=== PATIENT | male | born 1955 | race Two or more races ===

== ENCOUNTER 2017-06-07 22:17 | Emergency (ER) | payer MEDICARE, SELFPAY ==
[2017-06-07 22:18] VITALS: BP 127/73; PULSE 86; RESP 16; TEMP 37.2; O2SAT 97; BMI 22.9
--- NOTE | 2017-06-07 22:51 | ED.DCSUM_ITS ---
- ER Visit Summary Date of Service: 06/07/17 Chief Complaint: Right shoulder injury History of Present Illness: The patient is a 61 M mechanical fall 2020 minutes prior to arrival. Walking down the steps when he tripped landing directly on his shoulder. There is no head injuries. Denies any neck or back pain. Is able to ambulate to the ED. No paresthesias. No history of fracture. Past medical history: History of [place] 2011 with one stent. Currently on cholesterol medicines. Allergy to aspirin therefore takes Plavix. Physical Examination: General: Alert and oriented ?3, no acute distress HEENT: Normocephalic, atraumatic. Moist mucosa membranes Neck: supple, nontender. No midline tenderness. Cardiovascular: Regular rate and rhythm, no murmurs Respiratory: Normal breath sounds, symmetric, no distress Back: Nontender. Abdomen: Soft, nontender, nondistended Extremities: Right upper extremity: There is no clavicular tenderness. Shoulder with tenderness to palpation proximal shoulder. No deformities. Active range of motion. No elbow tenderness. Skin intact. Neurovascular intact distally. Neuro: no focal neurological deficits. Test Results: Right shoulder x-ray: No fracture or dislocation Emergency Department Course and Treatment: Patient concerned requested pain medicines. Given oxycodone. X-ray negative. Discuss due to inability tolerate NSAIDs he will use Tylenol every 6 hours as needed. I discussed continue range of motion to decrease risk of frozen shoulder. Rice therapy. Ice was given ED. Treatment Plan: [] Disposition: Discharge Impression: Right shoulder contusion This note was generated with [employer] dictation software. It may contain incorrect words, spelling, and punctuation that were not noted in review of the chart prior to signing ED Disposition - Plan for ED Patient: Disposition: Home or Assisted Living Chief Complaint: Upper Extremity Injury Diagnosis: Contusion of right shoulder Instructions: ED Contusion Shoulder Referrals: Willow Voss PA [Primary Care Provider] - 5-7 Days
[2017-06-07] MEDS: oxyCODONE 5 MG Tablet PO (22:53)
--- NOTE | 2017-06-07 22:55 | RAD_ITS ---
XR Shoulder Min 2 Views INDICATION: pain and limited rom s/p fall down stairs tonight COMPARISON: None TECHNIQUE: 4 views of the right shoulder FINDINGS: The osseous structures of the right shoulder are intact and well aligned. There is normal glenohumeral relationship is normal alignment at the acromioclavicular joint. The right clavicle appears intact. RAD/Shoulder min 2 Views IMPRESSION: Negative plain film examination of the right shoulder. at 2349 Reported and signed by: Shea Ortiz MD Electronically Signed: Shea Ortiz MD at 22:48 EDT Tel , Service support ,
== END 2017-06-08 00:03 | disposition home or self-care (01) ==
PROVIDERS: Emergency Provider Emergency Medicine; Family Provider Physician Assistant; PCP Physician Assistant
DX: S40.011A Contusion of right shoulder, initial encounter (principal); W10.9XXA Fall (on) (from) unspecified stairs and steps, initial encounter; Y93.01 Activity, walking, marching and hiking; Y92.9 Unspecified place or not applicable; I25.2 Old myocardial infarction; I10 Essential (primary) hypertension; E78.00 Pure hypercholesterolemia, unspecified; Z95.5 Presence of coronary angioplasty implant and graft; Z79.01 Long term (current) use of anticoagulants; Z79.899 Other long term (current) drug therapy
CPT/HCPCS: 73030; 99282

== ENCOUNTER → 2018-09-18 | Outpatient (CLI) | payer MEDICARE, SELFPAY ==
[2018-09-09 14:15] VITALS: BMI 22.4
--- NOTE | 2018-09-18 06:52 | ECHOCS_ITS ---
Version 2 Reason For Study: CAD/ASHD Procedure This was a 2D Doppler, Color Flow transthoracic echocardiogram. Contrast injection was performed. Exam performed in department. Left Ventricle Normal LV size. No thrombus noted. Moderate segmental systolic dysfunction (see wall motion). The estimated ejection fraction is 40 %. Mid-Anterior : Akinetic. Mid-anteroseptal : Severely Hypokinetic. Camby : Akinetic. There are regional wall motion abnormalities as specified. The rest of the wall segments are normal. Right Ventricle Normal RV size. Normal systolic function. Atria Normal left atrium. Normal right atrium. Patent foramen ovale. Mitral Valve Normal mitral valve. Mild (1+) eccentric mitral valve insufficiency. Tricuspid Valve Normal tricuspid valve. Aortic Valve Normal aortic valve. Trisinus/trileaflet aortic valve. Mild (1+) eccentric aortic valve insufficiency. Pulmonic Valve Normal pulmonic valve. Great Vessels Normal aortic root. The pulmonary artery is normal size. Normal inferior vena cava. Pericardium/Pleural No pericardial effusion. Medication Diluted definity 4ml given slow IV push to enhance endocardial definition. Performed a rapid injection of agitated mix of 9 cc saline and 1cc air to assess for atrial septal defect. MMode/2D Measurements & Calculations LVIDd: 5.1 cm IVSd: 1.3 cm Ao root diam: 2.9 cm LVIDs: 3.9 cm LVPWd: 0.97 cm RVDd: 3.3 cm FS: 23.1 % LAV(MOD-bp): 41.9 ml LVAd ap4: 40.4 cm2 SV(MOD-sp4): 62.1 ml LAV(MOD-bp) Indexed: 22.4 ml/m2 EDV(MOD-sp4): 157.7 ml LAV(MOD-sp2): 46.1 ml EDV(sp4-el): 165.9 ml LAV(MOD-sp4): 36.7 ml LVAs ap4: 30.1 cm2 ESV(MOD-sp4): 95.6 ml ESV(sp4-el): 101.9 ml EF(MOD-sp4): 39.4 % EF(sp4-el): 38.6 % SV(sp4-el): 64.1 ml LA A4 area: 13.8 cm2 LA dimension(2D): 3.7 cm RA A4 area: 11.4 cm2 Doppler Measurements & Calculations MV E max enoc: 60.3 cm/sec Lat Peak E' Enoc: 3.2 cm/sec Med Peak E' Enoc: 4.5 cm/sec MV A max enoc: 96.3 cm/sec E/E' lat: 18.7 E/E' med: 13.5 MV E/A: 0.63 Ao V2 max: 97.7 cm/sec LV V1 max: 75.2 cm/sec PA V2 max: 94.4 cm/sec Ao max P.8 mmHg LV V1 max P.3 mmHg Ao V2 mean: 75.0 cm/sec Ao mean P.4 mmHg Ao V2 VTI: 20.1 cm Interpretation Summary Normal LV size. Moderate segmental systolic dysfunction (see wall motion). The estimated ejection fraction is 40 %. Mild (1+) eccentric mitral valve insufficiency. No thrombus noted. Ordering Physician: Tian Coronado Referring Physician: Raghu Voss Performed By: Perlita Angel, MARIA ISABEL, RVT
--- NOTE | 2018-09-18 14:57 | STRESSREP ---
Stress Test Report Exercise myocardial perfusion stress test. 62-year-old man with a history of coronary artery disease. Medications Coumadin, losartan, amitriptyline. Stress protocol: Resting EKG demonstrates normal sinus rhythm with rate of 68 bpm. Previous extensive anterior infarct is noted. Resting blood pressures 124/80 mmHg. The patient exercised according to regular Alberto protocol for a total duration of 10 minutes. The maximum heart rate attained was 133 bpm which was 84% of maximum corrected heart rate and maximum workload was 11.7 metabolic equivalents. The patient maintained sinus rhythm throughout the recording. At rest there were no ST or T wave changes noted to suggest ischemia peak exercise upsloping ST changes only were noted with no meet the criteria for ischemia. The resting blood pressure was 124/80 with a peak blood pressure 150/82 mmHg. No clinical angina was noted the test was terminated due to shortness of breath. Myocardial perfusion protocol. 11.1 mCi of technetium 99m sestamibi was injected at rest. Patient exercised according to regular Alberto protocol for 10 minutes at peak exercise 33.2 mCi of technetium 99m sestamibi was injected stress images were obtained stress and rest images are reconstructed and compared in the short axis vertical and horizontal long axis. Gated images were also obtained Perfusion SPECT analysis: Review of the images demonstrate a normal cardiac silhouette size. There is an extensive defect noted in the mid to distal anterior wall apex and inferior apical wall. This is present on the stress and rest images to a similar extent suggesting an extensive anteroseptal apical distal anterior and inferior apical infarct. The inferior wall also demonstrates in the mid segment mild reduction of perfusion noted. No improvement is noted. Gated SPECT analysis: Gated images could not be obtained. Conclusion: Extensive anteroseptal, anterior, apical and inferoapical infarct. No ischemia noted.
== END | disposition home or self-care (01) ==
LOC: CVS 06:50
PROVIDERS: Family Provider Physician Assistant; PCP Physician Assistant; Referring Provider Internal Medicine Cardiovascular Disease; Visit Provider Internal Medicine Cardiovascular Disease
DX: Z01.810 Encounter for preprocedural cardiovascular examination (principal); I25.10 Atherosclerotic heart disease of native coronary artery without angina pectoris; Z95.5 Presence of coronary angioplasty implant and graft
CPT/HCPCS: 78452; 93017; 93306; A9500; Q9957; A4216; C8929

== ENCOUNTER → 2019-12-10 09:30 | Outpatient (CLI) | payer MEDICARE, SELFPAY ==
[2019-09-09 13:57] VITALS: BMI 22.2
== END ==
PROVIDERS: PCP Physician Assistant; Referring Provider Nurse Practitioner Family; Visit Provider Nurse Practitioner Family
DX: Z03.818 Encounter for observation for suspected exposure to other biological agents ruled out (principal); J02.9 Acute pharyngitis, unspecified
CPT/HCPCS: 87635; C9803; U0003

== ENCOUNTER → 2020-05-30 10:46 | Outpatient (CLI) | payer MEDICARE, SELFPAY ==
[2020-05-30 09:15] VITALS: BMI 22.9
[2020-05-30 11:44] LABS: AST(SGOT) 28 U/L (15-37); Alanine Aminotransfer ALT/SGPT 36 U/L (16-61); Albumin, Serum 4.2 g/dL (3.2-5.0); Alkaline Phosphatase 49 U/L (45-117); Bilirubin, Direct 0.11 mg/dL (0.00-0.30); Cholesterol 176 mg/dL (200); Globulin 3.6 g/dL (2.2-4.2); High Density Lipoprotein 52 mg/dL; Protein, Total 7.8 g/dL (6.4-8.2); Triglycerides 275 mg/dL; Very Low Density Lipoprotein 55 mg/dL (5-40)
== END ==
PROVIDERS: PCP Physician Assistant; Referring Provider Internal Medicine Cardiovascular Disease; Visit Provider Internal Medicine Cardiovascular Disease
DX: I25.10 Atherosclerotic heart disease of native coronary artery without angina pectoris (principal)
CPT/HCPCS: 36415; 80061; 80076

== ENCOUNTER 2022-12-16 07:13 | Day surgery (SDC) | payer MEDICARE, SELFPAY ==
[2022-12-16] VITALS (8 sets, daily range): BP systolic 91–122; BP diastolic 61–72; PULSE 75–80; RESP 16–18; TEMP 36.1–37.3; O2SAT 96–100; BMI 18.9
--- NOTE | 2022-12-16 | LES_PTH ---
PATIENT: NATE MILTON LOC: [facility] U#:[id number] AGE/SX: 67/M ROOM: RE12/16/[address]: Dr. Andrew Nair MD : 1955 BED: DIS: 12/16/2022 SPEC #: [id number] RECD: 12/16/22 10:47 STATUS: CHRIS RAMBO #: [id number] RIRI: 12/16/22 00:[address]: Andrew Nair DEPT: SURGICAL PATHOLOGY RECD BY: Ender Sarah ENTERED: 12/16/22 11:18 SP TYPE: Lesion OTHR DR: MONIE Santoro Tissues: Skin of lip, NOS Procedures: Surgery Specimen Level IV HEADER OPERATION: Excision oral lesion, lower lip PRE-OP DIAGNOSIS: Lesion of oral mucosa TISSUE SUBMITTED: Gingival labial sulcus neoplasm MICROSCOPIC DIAGNOSIS Gingival labial sulcus lesion, excisional biopsy: Subepithelial fibrosis, favor irritation fibroma. Focal ulceration and acute and chronic inflammation. Acanthosis and pseudoepitheliomatous hyperplasia. Negative for malignancy. See comment. MADY:manuela 12/17/2022 COMMENT Clinical correlation and appropriate follow up are necessary. Case has been reviewed in consultation with Dr. Cuellar who concurs with the above diagnosis. IDC:AM MICROSCOPIC DESCRIPTION Slides are reviewed. GROSS DESCRIPTION Received in fixative is one container labeled with the patient's name and designated gingival labial sulcus neoplasm. The specimen consists of a piece of leonard mucosal tissue measuring 3.2 x 1.2 x 0.4 cm. No obvious mucosal lesion is identified. The specimen is serially sectioned and submitted entirely in two cassettes. / MADY:manuela 12/16/2022 TC:5 CPT: 34037
[2022-12-16] MEDS: Lactated Ringers 1,000 ML 15 ML IV (07:51)
[2022-12-16 08:10] LABS: Hemoglobin 12.8 g/dL (13.0-16.5); Mean Corp Hgb Conc 32.8 g/dL (32-36); Mean Corpuscular Hgb 29.8 pg (27.0-32.0); Mean Corpuscular Volume 90.7 fL (80-94); Mean Platelet Vol. 10.2 fl (6.2-12.0); Platelet Count 187 K/mm3 (150-450); RBC Distribution Width CV 12.5 % (11.6-14.6); RBC Distribution Width SD 41.3 fl (35.1-43.9); White Blood Count 4.6 K/mm3 (4.4-11.0)
[2022-12-16 08:18] LABS: Anion Gap 4 (5-15); BUN 14 mg/dL (7-18); BUN/Creat Ratio 16.6 RATIO (10-20); Chloride 106 mmol/L (98-107); Creatinine, Serum 0.84 mg/dL (0.70-1.30); EST Glomerular Filtration Rate 97 mL/min (>60); Est Glom Filt Rate - Afr Amer 117 mL/min (>60); Estimated Creatinine Clearance 72.42 ml/min; Glucose 96 mg/dL (74-106); Potassium 4.2 mmol/L (3.5-5.1); Sodium Level 139 mmol/L (136-145)
[2022-12-16] MEDS: Clindamycin 900 MG/50 ML BAG 75 MG IV (08:50)
--- NOTE | 2022-12-16 08:50 | PCM.DC.SUM ---
Providers Primary Care Physician: MONIE Santoro Reason For Visit: Excision, Oral Lesion, lower lip Medications at Discharge Home Medications amitriptyline 25 mg tablet 25 mg PO QHS 05/30/20 rosuvastatin 10 mg tablet 10 mg PO QHS 08/16/22 Weight / BMI Weight Weight: 60 kg Body Mass Index (BMI) 18.9 ABG / Lab / Microbiology Data 12/16/22 07:54 12/16/22 07:54 Laboratory: Laboratory Results - last 24 hr 12/16/22 07:54: WBC 4.6, RBC 4.30 L, Hgb 12.8 L, Hct 39.0 L, MCV 90.7, MCH 29.8, MCHC 32.8, RDW Std Deviation 41.3, RDW Coeff of Toshia 12.5, Plt Count 187, MPV 10.2, Sodium 139, Potassium 4.2, Chloride 106, Carbon Dioxide 29.0, Anion Gap 4 L, BUN 14, Creatinine 0.84, Estim Creat Clear Calc 72.42, Est GFR (MDRD) Af Amer 117, Est GFR (MDRD) Non-Af 97, BUN/Creatinine Ratio 16.6, Glucose 96, Calcium 9.0 D/C Instructions Discharge Diet: Soft diet Additional Instructions: tylenol as needed. Start the antibiotic tonight Please Follow Up With: Andrew Nair MD When: 10-14 days Meaningful Use Info Meaningful Use Diagnoses (Choose all that apply): None applicable Discharge Plan Admission Attending Provider: Andrew Nair Primary Care Provider: Willow Voss Discharge Orders/Prescriptions Prescriptions: No Action amitriptyline 25 mg tablet 25 mg PO QHS rosuvastatin 10 mg tablet 10 mg PO QHS Referrals / Follow Up: Willow Voss PA [Primary Care Provider] - Disposition Disposition (needs filled in before D/C Order can be placed): Home, Self Care
[2022-12-16] MEDS: Lidocaine 2% /Epi 1:100 (20ml) 20 ML VIAL (09:03)
--- NOTE | 2022-12-16 09:31 | PCM.OPRPT ---
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 He was placed in the supine position on the operating table. He was given sufficient general endotracheal anesthesia. The head of bed was elevated 30 degrees. The patient was draped sterilely. 1% lidocaine with epinephrine was injected into the mucosa surrounding the lesion. After sufficient vasoconstriction, an ellipitical incision was carried out around the lesion with a 15 blade. Bipolar cautery was used for hemostasis. Next, I used tenotomy scissors to dissect the mucosa off the underlying muscle. Hemostasis was achieved with bipolar cautery. I then irrigated the wound. The mucosa was closed with interrupted 4-0 chromic. The patient was then awoken and brought to recovery room in stable condition. blood loss minimal replacement none. sponge, needle and instrument count correct at the end of the procedure. ?
--- NOTE | 2022-12-16 10:47 | EKG12_ITS ---
Test Reason : PRE-OP Blood Pressure : / mmHG Vent. Rate : 076 BPM Atrial Rate : 076 BPM P-R Int : 192 ms QRS Dur : 094 ms QT Int : 386 ms P-R-T Axes : 046 -05 124 degrees QTc Int : 434 ms Normal sinus rhythm Low voltage QRS T wave abnormality, consider lateral ischemia Abnormal ECG Confirmed by SIVA ELLIS, ZUNILDA ([id number]), assistant editor FRANCISCO RAND ([id number]) on 12/26/2022 11:37:28 AM Referred By: Andrew Nair Confirmed By:ZUNILDA PANIAGUA MD
== END 2022-12-16 12:17 | disposition home or self-care (01) ==
LOC: SDC 07:14 → AC 07:16
PROVIDERS: PCP Physician Assistant; Referring Provider Otolaryngology; Visit Provider Otolaryngology
PROC: (CPT 40814; principal; 2022-12-16 08:15)
DX: D10.39 Benign neoplasm of other parts of mouth (principal); I25.2 Old myocardial infarction; I25.5 Ischemic cardiomyopathy; E78.5 Hyperlipidemia, unspecified; I25.10 Atherosclerotic heart disease of native coronary artery without angina pectoris; Z95.5 Presence of coronary angioplasty implant and graft; Z79.899 Other long term (current) drug therapy
CPT/HCPCS: 40814; 00170; 80048; 85027; 88305; 93005; J7120; J2405

== ENCOUNTER 2023-04-09 21:55 | Emergency (ER) | payer MEDICARE, SELFPAY ==
[2023-04-09] VITALS (12 sets, daily range): BP systolic 119–151; BP diastolic 62–85; PULSE 76–91; RESP 14–17; TEMP 36.7–36.9; O2SAT 95–99; BMI 18.2; BMI 19.3
--- NOTE | 2023-04-09 21:57 | CT_ITS ---
We are attempting to reach an attending provider to discuss findings. An addendum with communication details will be sent when the communication is complete. INDICATION: Neuro deficit, acute, stroke suspected EXAMINATION: CT BRAIN - CT Head Stroke Protocol W/O Contrast Injection TECHNIQUE: Multiple axial images were obtained of the head without intravenous contrast. A radiation dose optimization technique was used for this scan. IV Contrast dosage and agent: None. COMPARISON: None FINDINGS: BRAIN PARENCHYMA: No intra- or extra-axial hemorrhage. No evidence of acute infarct. No intracranial mass or mass effect. Mild patchy periventricular and subcortical white matter hypodense chronic small vessel white matter ischemic change. There is preservation of the liu/white matter interface. Posterior fossa structures are unremarkable. CSF SPACES: Cerebral volume appropriate for age. No hydrocephalus. Basal cisterns are patent. CALVARIUM, SKULL BASE, PARANASAL SINUSES AND MASTOID AIR CELLS: No acute osseous finding. Mild scattered paransal sinus mucoperisteal thickening. Left congenital osseous nasal septal deviation with left greater than right ekta bullosa. Mastoid air cells are clear. ORBITS: Both globes, extraocular muscles, optic nerves and retrobulbar fat appear unremarkable. ASPECTS Score for Acute Strokes: 10 CT/STROKE Brain/Head without Cont IMPRESSION: No CT evidence of acute intracranial hemorrhage or injury. Mild senescent changes compatible with age. Mild scattered sinus disease. Electronically Signed: Justen Soto MD at 22:15 EST ,
--- NOTE | 2023-04-09 21:59 | CT_ITS ---
INDICATION: Neuro deficit, acute, stroke suspected EXAMINATION: CTA CAROTIDS AND BRAIN - CTA Head and Neck Stroke W/ Contrast (and W/O if performed) TECHNIQUE: Routine CTA of the head and neck was performed with post processing of the angiographic images for volumetric reconstructions. In addition, images were obtained of the [place] of [place]. Nascet criteria using the distal ICAs for comparison were used for evaluation of stenoses. 3D reconstructions were reviewed. A radiation dose optimization technique was used for this scan. IV Contrast dosage and agent: 100 mL [id number] COMPARISON: Noncontrast CT head on same day. FINDINGS: --NECK: AORTIC ARCH AND BRANCHES: Normal anatomy, patent. RIGHT CCA: No occlusion, significant stenosis or dissection. RIGHT ICA: No occlusion, significant stenosis or dissection. LEFT CCA: No occlusion, significant stenosis or dissection. LEFT ICA: No occlusion, significant stenosis or dissection. RIGHT VERTEBRAL ARTERY: No occlusion, significant stenosis or dissection. LEFT VERTEBRAL ARTERY: No occlusion, significant stenosis or dissection. NECK SOFT TISSUES: Unremarkable. LUNG APICES: Clear. BONES: Scattered mild paranasal sinus mucoperiosteal thickening.. --HEAD: --Anterior circulation: ICAs: No significant stenosis at the intracranial/visualized segments. ACAs: No significant stenosis at the visualized segments. ACOM: Present. MCAs: Right distal M1 segment focal greater than 90% stenosis across 3 mm span just prior to bifurcation of the superior and inferior divisions. No focal flow-limiting stenosis on the left proximal MCA.. --Posterior circulation: PCOMs: Not seen senior electrical design engineer: No significant stenosis at the visualized segments. BASILAR ARTERY: No significant stenosis. VERTEBRAL ARTERIES: No significant stenosis at the intradural/visualized segments. No evidence of intracranial aneurysm or vascular malformation. CT/STROKE CTA Head AND Neck W/Con IMPRESSION: Findings concerning for focal short segment high-grade stenosis of the distal right M1 segment just prior to bifurcation at the sylvian fissure with reconstitution and distal vascular flow. No evidence of flow-limiting stenosis within the neck. Sinus disease N.B. : The above Results were Read Back by Justen Soto MD to Ayan Weinstein DO, and understanding confirmed on 04/09/2023 22:48:28 (ET). Electronically Signed: Justen Soto MD at 22:50 EST ,
[2023-04-09 22:16] LABS: International Normalized Ratio 1.2
[2023-04-09 22:17] LABS: Partial Thromboplast Time 30.9 Seconds (24.1-36.2)
[2023-04-09 22:18] LABS: Absolute Lymphocyte Count 2.79 X10^3/uL (0.83-4.51); Basophil# 0.07 X10^3/uL; Eosinophil# 0.27 X10^3/uL; Hemoglobin 12.9 g/dL (13.0-16.5); Lymphocyte # 2.79 X10^3/ul (0.83-4.51); Mean Corp Hgb Conc 33.9 g/dL (32-36); Mean Corpuscular Hgb 29.2 pg (27.0-32.0); Mean Platelet Vol. 10.5 fl (6.2-12.0); Monocyte# 0.71 X10^3/uL; Monocyte% 10.4 % (0-10); NRBC Flagged by Analyzer 0 % (0-5); Neutrophil # 2.96 X10^3/uL (2.7-7.7); Neutrophil % 43.6 % (47-70); Platelet Count 209 K/mm3 (150-450); RBC Distribution Width CV 12.8 % (11.6-14.6); Red Blood Count 4.42 M/mm3 (4.6-6.2); White Blood Count 6.8 K/mm3 (4.4-11.0)
[2023-04-09 22:20] LABS: Anion Gap 4 (5-15); BUN 19 mg/dL (7-18); BUN/Creat Ratio 19.5 RATIO (10-20); Calcium,Total 9.5 mg/dL (8.5-10.1); Chloride 106 mmol/L (98-107); Creatinine, Serum 0.98 mg/dL (0.70-1.30); EST Glomerular Filtration Rate 82 mL/min (>60); Est Glom Filt Rate - Afr Amer 99 mL/min (>60); Estimated Creatinine Clearance 63.21 ml/min; Glucose 101 mg/dL (74-106); Sodium Level 138 mmol/L (136-145)
--- OUTSIDE RECORDS SUMMARY | 2023-04-09 22:21 | XMS RPT_ITS | CCD ---
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 patient. No educational speech language clinician was used. URI He complains of cough. There is no chest tightness, difficulty breathing, frequent throat clearing, hemoptysis, hoarse voice, shortness of breath, sputum production or wheezing. This is a new problem. The current episode started in the past 7 days. The problem occurs constantly. The problem has been gradually worsening. The cough is non-productive. Associated symptoms include ear congestion, ear pain, a fever, headaches, malaise/fatigue, nasal congestion, postnasal drip, rhinorrhea and sneezing. Pertinent negatives include no appetite change, chest pain, dyspnea on exertion, heartburn, myalgias, orthopnea, PND, sore throat, sweats, trouble swallowing or weight loss. His symptoms are aggravated by nothing. His symptoms are alleviated by nothing. He reports no improvement on treatment. There are no known risk factors for lung disease. There is no history of asthma, bronchiectasis, bronchitis, COPD, emphysema or pneumonia. PAST MEDICAL HISTORY Diagnosis Date Abdominal pain, unspecified site Anxiety with depression Chronic insomnia Coronary artery disease s/p thrombectomy and SAI mid-LAD with promus stent 12/2011 Coronary artery disease involving beaver coronary artery of beaver heart without angina pectoris Impotence of organic origin Mixed hyperlipidemia Hyperlipidemia Mural thrombus of cardiac apex 09/18/2018 09/18/[address] Coronado: Left ventricle normal size, no thrombus noted. Moderate segmental systolic dysfunction. It ejection fraction estimated 40%. Mid anterior akinesis, mid anteroseptal severely hypokinetic. Hammond is akinetic. Right ventricle normal size and systolic function. Left and right atrium are normal. Patent foramen ovale present. Valves are within normal limits except Myalgia and myositis, unspecified Myocardial infarction (HCC) 2012 Nonischemic cardiomyopathy (HCC) Rotator cuff tear, right PAST SURGICAL HISTORY Procedure Laterality Date COLONOSCOPY FLX DX W/COLLJ SPEC WHEN PFRMD 03/15/15 Colonoscopy COLONOSCOPY FLX DX W/COLLJ SPEC WHEN PFRMD 04/06/2019 Colonoscopy PAST SURGICAL HISTORY OF Right inguinal hernia repair PAST SURGICAL HISTORY OF Heart cath with stents x 2, [place] [facility] ALLERGIES Aspirin and Naprosyn [Naproxen] MEDICATIONS amitriptyline (ELAVIL) 25 mg tablet Take 1 tablet by mouth daily at bedtime. mirtazapine (REMERON) 15 mg tablet Take 0.5 tablets by mouth daily at bedtime. melatonin 1 mg tablet Take 1 tablet by mouth once daily. rosuvastatin (CRESTOR) 10 mg tablet Take 1 tablet by mouth daily at bedtime. nitroglycerin sublingual (NITROSTAT) 0.4 mg SL tablet Dissolve 1 tablet under the tongue every 5 minutes as needed for chest pain. aspirin, enteric coated (ASPIRIN, ENTERIC COATED) 81 mg EC tablet Take 81 mg by mouth once daily. Pt only takes a few times a week. amoxicillin-clavulanic acid (AUGMENTIN) 875-125 mg per tablet Take 1 tablet by mouth twice daily for 7 days. FAMILY HISTORY Problem Relation Age of Onset None Mother None Father natural causes per pt No Ocular Disease Other Social History Tobacco Use Smoking status: Never Smokeless tobacco: Never Vaping Use Vaping Use: Never used Substance Use Topics Alcohol use: No Drug use: No Review of Systems Constitutional: Positive for chills, fever and malaise/fatigue. Negative for appetite change and weight loss. HENT: Positive for congestion, ear pain, postnasal drip, rhinorrhea and sneezing. Negative for hoarse voice, sore throat and trouble swallowing. Eyes: Negative for pain, discharge, redness and itching. Respiratory: Positive for cough. Negative for apnea, hemoptysis, sputum production, chest tightness, shortness of breath and wheezing. Cardiovascular: Negative for chest pain, dyspnea on exertion and PND. Gastrointestinal: Negative for abdominal pain, diarrhea, heartburn, nausea and vomiting. Musculoskeletal: Negative for arthralgias, back pain, gait problem and myalgias. Skin: Negative for color change, pallor and rash. Allergic/Immunologic: Negative for environmental allergies, food allergies and immunocompromised state. Neurological: Positive for headaches. Negative for dizziness and facial asymmetry. Hematological: Negative for adenopathy. Does not bruise/bleed easily. Psychiatric/Behavioral: Negative for agitation and behavioral problems. Objective BP 110/62 Pulse 91 Temp 37.1 C (98.7 F) (Tympanic) Resp 18 Wt 62 kg (136 lb 9.6 oz) SpO2 96% BMI 19.60 kg/m Physical Exam Vitals and nursing note reviewed. Constitutional: General: He is not in acute distress. Appearance: Normal appearance. He is not ill-appearing, toxic-appearing or diaphoretic. HENT: Head: Normocephalic and atraumatic. Right Ear: External ear normal. Left Ear: External ear normal. Ears: Comments: Left TM erythematous and blging Nose: Nose normal. No congestion or rhinorrhea. Mouth/Throat: Mouth: Mucous membranes are moist. Pharynx: Oropharynx is clear. No oropharyngeal exudate or posterior oropharyngeal erythema. Eyes: General: Right eye: No discharge. Left eye: No discharge. Extraocular Movements: Extraocular movements intact. Conjunctiva/sclera: Conjunctivae normal. Pupils: Pupils are equal, round, and reactive to light. Cardiovascular: Rate and Rhythm: Regular rhythm. Pulses: Normal pulses. Heart sounds: Normal heart sounds. No murmur heard. No friction rub. No gallop. Pulmonary: Effort: Pulmonary effort is normal. No respiratory distress. Breath sounds: Normal breath sounds. No stridor. No wheezing, rhonchi or rales. Chest: Chest wall: No tenderness. Abdominal: General: Abdomen is flat. There is no distension. Palpations: Abdomen is soft. There is no mass. Tenderness: There is no abdominal tenderness. There is no guarding or rebound. Hernia: No hernia is present. Musculoskeletal: General: No swelling, tenderness, deformity or signs of injury. Normal range of motion. Cervical back: Normal range of motion and neck supple. No rigidity or tenderness. Right lower leg: No edema. Left lower leg: No edema. Lymphadenopathy: Cervical: No cervical adenopathy. Skin: General: Skin is warm and dry. Capillary Refill: Capillary refill takes less than 2 seconds. Coloration: Skin is not jaundiced or pale. Findings: No bruising, lesion or rash. Neurological: General: No focal deficit present. Mental Status: He is alert and oriented to person, place, and time. Cranial Nerves: No cranial nerve deficit. Sensory: No sensory deficit. Motor: No weakness. Coordination: Coordination normal. Gait: Gait normal. Deep Tendon Reflexes: Reflexes normal. Psychiatric: Mood and Affect: Mood normal. Behavior: Behavior normal. Thought Content: Thought content normal. Assessment and Plan ASSESSMENT/PLAN: 1. URI, acute - ICD9: 465.9, ICD10: J06.9 (primary diagnosis) - Symptomatic treatment with prn analgesia - Supportive care with fluids and rest - The patient may also use OTC cough and cold meds as needed, warm salt water gargles, throat lozenges and/or OTC throat spray as needed, and nasal saline gtts and suction prn. - Follow up in 3-5 days if symptoms persist or sooner if worsening of symptoms 2. Acute otitis media, left - ICD9: 382.9, ICD10: H66.92 - Will begin treatment with as per antibiotic as written, see orders - The patient should also be given OTC cough and cold meds as needed, warm salt water gargles, throat lozenges and/or OTC throat spray as needed, and nasal saline gtts and suction prn for the first 5-7 days of treatment. - Supportive care with plenty of fluids, rest, and analgesia prn. - Follow up in 3-5 days if symptoms persist or worsen. Jewell Hung APRN.CUSTOMER SERVICE RECEPTIONIST documented in this encounter [facility] 10-30-2022 Miscellaneous Notes Patient has been identified by name and date of : Yes Last office visit in this department: 09/02/2022 Labs-06/28/22 NOV-none RX INSTRUCTIONS: Patient aware RX will be sent to pharmacy. No need to notify patient. Patient phones requesting refills as follows: Requested Prescriptions Pending Prescriptions Disp Refills amitriptyline (ELAVIL) 25 mg tablet 180 tablet 0 Sig: Take 1 tablet by mouth daily at bedtime. Please review and advise. Ramona Guillaume Pss documented in this encounter [facility] 09-02-2022 Note HNO ID: [id number] Author: Willow Voss PA-C Service: ? Author Type: Physician Safety Coordinator Type: Progress Notes Filed: 09/02/2022 5:08 PM Note Text: 66 year old male with c/o C/o shoulder and leg pain Worried about being too thin. Appetite is not good: feels it is lower than previous. People at [employer] ask what's wrong with him. Weight has been stable over last year No change in bowels. Feels weak, cold. 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 Colonoscopy 04/06/2019 WNL Constipation: takes metamucil Concerned about calluses on toes. Wears slippers. At home. Coronary artery disease involving beaver coronary artery of beaver heart without angina pectoris (primary encounter diagnosis) Nonischemic cardiomyopathy (hcc) Myocardial infarction, unspecified mi type, unspecified artery (hcc) Mixed hyperlipidemia Cardiovascular interval hx: Saw Dr. Coronado In July: doing well Current meds: Rosuvastin 10mg qHS (changed from atrovastatin at daughter's request) NTG 0.4mg SL prn Use of NTG: No Chest pain, arm, jaw pain, neck, or upper back pain suggestive of angina: No. SOB: No Dyspnea with exertion: No orthopnea: No Cough : No racing or irregular heartbeats: No palpitations: No syncopal sx: No Headache: No Unexplainable fatigue No Leg swelling: No Nausea: No diaphoresis: Yes Heartburn: No Claudication: No Smoking: No Following Low cholesterol, high fiber diet? Yes If on statin: muscle aches? no If on statin: GI sx or diarrhea? No Additional history none. Lab review: Component Latest Ref Rng AND Units 09/02/2018 03/31/2019 04/24/2022 WBC 3.70 - 11.00 k/uL 6.78 4.57 RBC 4.20 - 6.00 m/uL 4.60 4.74 Hemoglobin 13.0 - 17.0 g/dL 13.8 14.5 Hematocrit 39.0 - 51.0 % 40.4 43.4 MCV 80.0 - 100.0 fL 87.8 91.6 MCH 26.0 - 34.0 pg 30.0 30.6 MCHC 30.5 - 36.0 g/dL 34.2 33.4 RDW-CV 11.5 - 15.0 % 13.2 12.7 Platelet Count 150 - 400 k/uL 201 202 MPV 9.0 - 12.7 fL 10.9 11.0 Neut% % 57.7 54.8 Abs Neut (ANC) 1.45 - 7.50 k/uL 3.91 2.51 Lymph% % 27.0 32.2 Abs Lymph 1.00 - 4.00 k/uL 1.83 1.47 Smyth% % 11.1 8.8 Abs Smyth <0.87 k/uL 0.75 0.40 Eosin% % 3.2 3.3 Abs Eosin <0.46 k/uL 0.22 0.15 Baso% % 1.0 0.9 Abs Baso <0.11 k/uL 0.07 0.04 Immature Gran % % 0.0 IMMATURE GRANS (ABS) <0.10 k/uL <0.03 NRBC /100 WBC 0.0 Absolute nRBC <0.01 k/uL <0.01 <0.01 DTYPE Auto Nucleated Reds 0 /100 WBC 0.0 Diff Type Auto Diff Protein, Total 6.3 - 8.0 g/dL 7.7 7.6 Albumin 3.9 - 4.9 g/dL 4.8 4.6 Calcium 8.5 - 10.2 mg/dL 9.9 10.0 Bilirubin, Total 0.2 - 1.3 mg/dL 0.4 0.4 Alkaline Phosphatase 38 - 113 U/L 46 50 AST 14 - 40 U/L 28 24 Glucose 74 - 99 mg/dL 108 (H) 98 BUN 9 - 24 mg/dL 11 10 Creatinine 0.73 - 1.22 mg/dL 0.80 0.80 Sodium 136 - 144 mmol/L 138 141 Potassium 3.7 - 5.1 mmol/L 4.5 4.4 Chloride 97 - 105 mmol/L 101 104 CO2 22 - 30 mmol/L 27 28 Anion Gap 9 - 18 mmol/L 10 9 ALT 10 - 54 U/L 28 20 eGFR- >60 eGFR-All Other Races . >60 eGFR >=60 mL/min/1.73mA? 98 Cholesterol, Total <200 mg/dL 200 (H) 156 Triglyceride <150 mg/dL 144 146 HDL Cholesterol >39 mg/dL 49 49 LDL Cholesterol <100 mg/dL 122 (H) 78 Non HDL Cholesterol <130 mg/dL 151 (H) 107 Fasting Time hrs Unknown 11 VLDL Cholesterol <30 mg/dL 29 29 TC:HDL Ratio <5.10 4.08 3.18 LDL:HDL Ratio <2.54 2.49 1.59 Anxiety with depression Current medications: Melatonin 1mg HS Elavil 25mg 2 tabs at bedtime Lesion of buccal mucosa Bph with obstruction/lower urinary tract symptoms Elevated psa Had scheduled consult Danae Edward PA-C on his own but had not completed PSA Post void residual 0mL PSA (ng/mL) Date Value 06/28/2022 0.71 PSA Screening (ng/mL) Date Value 01/07/2015 0.97 02/19/2014 2.90 02/10/2013 1.40 HISTORIES FAMILY HISTORY Problem Relation Age of Onset None Mother None Father natural causes per pt No Ocular Disease Other PAST MEDICAL HISTORY Diagnosis Date Abdominal pain, unspecified site Anxiety with depression Chronic insomnia Coronary artery disease s/p thrombectomy and SAI mid-LAD with promus stent 12/2011 Coronary artery disease involving beaver coronary artery of beaver heart without angina pectoris Impotence of organic origin Mixed hyperlipidemia Hyperlipidemia Mural thrombus of cardiac apex 09/18/2018 09/18/[address] Coronado: Left ventricle normal size, no thrombus noted. Moderate segmental systolic dysfunction. It ejection fraction estimated 40%. Mid anterior akinesis, mid anteroseptal severely hypokinetic. Hammond is akinetic. Right ventricle normal size and systolic function. Left and right atrium are normal. Patent foramen ovale present. Valves are within normal limits except Myalgia and myositis, unspecified Myocardial infarction (HCC) 2011 Nonischemic cardiomyopathy (HCC) Rotator cuff tear, right PAST SURGICAL HISTORY Procedure Laterality Date COLONOSCOPY FLX (more content not included)... [facility] 09-02-2022 Instructions M Raghu Voss PA-C - 09/02/2022 4:[address] PM EDT Oral surgeon Dr. Andrew Evans [phone] Mirtazapine: Patient drug information to help with appetite Access [employer] for additional drug information, tools, and databases. Copyright [employer]. All rights reserved. (For additional information see Mirtazapine: Drug information ) You must carefully read the Consumer Information Use and Disclaimer below in order to understand and correctly use this information. Brand Names: [place] Remeron; Remeron SolTab Brand Names: Rufus APO-Mirtazapine; Auro-Mirtazapine; Auro-Mirtazapine OD; DOM-Mirtazapine; JAMP-Mirtazapine; MYLAN-Mirtazapine; PMS-Mirtazapine; PRO-Mirtazapine; Remeron; Remeron RD; SANDRA-Mirtazapine [DSC]; SANDOZ Mirtazapine; TEVA-Mirtazapine; TEVA-Mirtazapine OD [DSC] Warning Drugs like this one have raised the chance of suicidal thoughts or actions in children and young adults. The risk may be greater in people who have had these thoughts or actions in the past. All people who take this drug need to be watched closely. Call the doctor right away if signs like low mood (depression), nervousness, restlessness, grouchiness, panic attacks, or changes in mood or actions are new or worse. Call the doctor right away if any thoughts or actions of suicide occur. This drug is not approved for use in children. Talk with the doctor. What is this drug used for? It is used to treat low mood (depression). It may be given to you for other reasons. Talk with the doctor. What do I need to tell my doctor BEFORE I take this drug? If you are allergic to this drug; any part of this drug; or any other drugs, foods, or substances. Tell your doctor about the allergy and what signs you had. If you are taking any of these drugs: Certain drugs used for anxiety, sleep, or other health problems like alprazolam or diazepam. If you have taken certain drugs for depression or Parkinson's disease in the last 14 days. This includes isocarboxazid, phenelzine, tranylcypromine, selegiline, or rasagiline. Very high blood pressure may happen. If you are taking any of these drugs: Linezolid or methylene blue. This is not a list of all drugs or health problems that interact with this drug. Tell your doctor and pharmacist about all of your drugs (prescription or OTC, natural products, vitamins) and health problems. You must check to make sure that it is safe for you to take this drug with all of your drugs and health problems. Do not start, stop, or change the dose of any drug without checking with your doctor. What are some things I need to know or do while I take this drug? Tell all of your health care providers that you take this drug. This includes your doctors, nurses, pharmacists, and dentists. It may take several weeks to see the full effects. Do not stop taking this drug all of a sudden without calling your doctor. You may have a greater risk of side effects. If you need to stop this drug, you will want to slowly stop it as ordered by your doctor. Avoid driving and doing other tasks or actions that call for you to be alert until you see how this drug affects you. Some people may have a higher chance of eye problems with this drug. Your doctor may want you to have an eye exam to see if you have a higher chance of these eye problems. Call your doctor right away if you have eye pain, change in eyesight, or swelling or redness in or around the eye. Low white blood cell counts have rarely happened with this drug. This may lead to a higher chance of getting an infection. Tell your doctor if you have ever had a low white blood cell count. Call your doctor right away if you have signs of infection like fever, chills, or sore throat. An unsafe heartbeat that is not normal (long QT on ECG) has happened with this drug. Sudden deaths have rarely happened in people taking this drug. Talk with the doctor. This drug may cause high cholesterol and triglyceride levels. Talk with the doctor. Have blood work checked as you have been told by the doctor. Talk with the doctor. Avoid drinking alcohol while taking this drug. Talk with your doctor before you use marijuana, other forms of cannabis, or prescription or OTC drugs that may slow your actions. If you have phenylketonuria (PKU), talk with your doctor. Some products have phenylalanine. If you are 65 or older, use this drug with care. You could have more side effects. Tell your doctor if you are , plan on getting , or are breast-feeding. You will need to talk about the benefits and risks to you and the baby. What are some side effects that I need to call my doctor about right away? WARNING/CAUTION: Even though it may be rare, some people may have very bad and sometimes deadly side effects when taking a drug. Tell your doctor or get medical help right away if you have any of the following signs or symptoms that may be related to a very bad side effect: Signs of an allergic reaction, like rash; hives; itching; red, swollen, blistered, or peeling skin with or without fever; wheezing; tightness in the chest or throat; trouble breathing, swallowing, or talking; unusual hoarseness; or swelling of the mouth, face, lips, tongue, or throat. Signs of low sodium levels like headache, trouble focusing, memory problems, feeling confused, weakness, seizures, or change in balance. Signs of a very bad skin reaction (Ruiz-Hussain syndrome/toxic epidermal necrolysis) like red, swollen, blistered, or peeling skin (with or without fever); red or irritated eyes; or sores in the mouth, throat, nose, or eyes. Redness or irritation of the palms of hands or soles of feet. Flu-like signs. Mouth irritation or mouth sores. Restlessness. Fast or abnormal heartbeat. Very bad dizziness or passing out. Joint pain. A severe and sometimes deadly problem called serotonin syndrome may happen. The risk may be greater if you also take certain other drugs. Call your doctor right away if you have agitation; change in balance; confusion; hallucinations; fever; fast or abnormal heartbeat; flushing; muscle twitching or stiffness; seizures; shivering or shaking; sweating a lot; severe diarrhea, upset stomach, or throwing up; or very bad headache. What are some other side effects of this drug? All drugs may cause side effects. However, many people have no side effects or only have minor side effects. Call your doctor or get medical help if any of these side effects or any other side effects bother you or do not go away: Feeling dizzy, sleepy, tired, or weak. Constipation. Dry mouth. More hungry. Weight gain. Strange or odd dreams. These are not all of the side effects that may occur. If you have questions about side effects, call your doctor. Call your doctor for medical advice about side effects. You may report side effects to your national health agency. How is this drug best taken? Use this drug as ordered by your doctor. Read all information given to you. Follow all instructions closely. All products: Take at bedtime if it causes sleepiness. Take with or without food. Keep taking this drug as you have been told by your doctor or other health care provider, even if you feel well. Oral-disintegrating tablet: Do not push the tablet out of the foil when opening. Use dry hands to take it from the foil. Place on your tongue and let it dissolve. Water is not needed. Do not swallow it whole. Do not chew, break, or crush it. Do not take this drug out of the blister pack until you are ready to take it. Take this drug right away after opening the blister pack. Do not store the removed drug for future use. What do I do if I miss a dose? Take a missed dose as soon as you think about it. If it is close to the time for your next dose, skip the missed dose and go back to your normal time. Do not take 2 doses at the same time or extra doses. How do I store and/or throw out this drug? Store at room temperature protected from light. Store in a dry place. Do not store in a bathroom. Keep all drugs in a safe place. Keep all drugs out of the reach of children and pets. Throw away unused or drugs. Do not flush down a toilet or pour down a drain unless you are told to do so. Check with your pharmacist if you have questions about the best way to throw out drugs. There may be drug take-back programs in your area. General drug facts If your symptoms or health problems do not get better or if they become worse, call your doctor. Do not share your drugs with others and do not take anyone else's drugs. Some drugs may have another patient information leaflet. If you have any questions about this drug, please talk with your doctor, nurse, pharmacist, or other health care provider. If you think there has been an overdose, call your poison control center or get medical care right away. Be ready to tell or show what was taken, how much, and when it happened. Last Reviewed [id number] Consumer Information Use and Disclaimer This information should not be used to decide whether or not to take this medicine or any other medicine. Only the healthcare provider has the knowledge and training to decide which medicines are right for a specific patient. This information does not endorse any medicine as safe, effective, or approved for treating any patient or health condition. This is only a brief summary of general information about this medicine. It does NOT include all information about the possible uses, directions, warnings, precautions, interactions, adverse effects, or risks that may apply to this medicine. This information is not specific medical advice and does not replace information you receive from the healthcare provider. You must talk with the healthcare provider for complete information about the risks and benefits of using this medicine. The use of this information is governed by the [employer] End User License Agreement, available at https://www.Other Machine/en /solutions/Oilex/about/autumn. 2020 [employer]. and its affiliates and/or licensors. All rights reserved. Use of [employer] is subject to the Subscription and License Agreement. Topic 64735 Version 187.0 Cut back on amitriptyline to 1 tablet at night while on mirtazepine. Arthritis Formula Tylenol 2 tabs every 8h for pain. documented in this encounter [facility] 09-02-2022 History of Presen t illness Narrative 66 year old male with c/o C/o shoulder and leg pain Worried about being too thin. Appetite is not good: feels it is lower than previous. People at [employer] ask what's wrong with him. Weight has been stable over last year No change in bowels. Feels weak, cold. 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 Colonoscopy 04/06/2019 WNL Constipation: takes metamucil Concerned about calluses on toes. Wears slippers. At home. Coronary artery disease involving beaver coronary artery of beaver heart without angina pectoris (primary encounter diagnosis) Nonischemic cardiomyopathy (hcc) Myocardial infarction, unspecified mi type, unspecified artery (hcc) Mixed hyperlipidemia Cardiovascular interval hx: Saw Dr. Coronado In July: doing well Current meds: Rosuvastin 10mg qHS (changed from atrovastatin at daughter's request) NTG 0.4mg SL prn Use of NTG: No Chest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 estimated 40%. Mid anterior akinesis, mid anteroseptal severely hypokinetic. Hammond is akinetic. Right ventricle normal size and systolic function. Left and right atrium are normal. Patent foramen ovale present. Valves are within normal limits except for mild mitral valve insufficiency and mild aortic valve insufficiency. Normal aortic root. 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 Coronado: Left ventricle normal size, no thrombus noted. Moderate segmental systolic dysfunction. It ejection fraction estimated 40%. Mid anterior akinesis, mid anteroseptal severely hypokinetic. Hammond is akinetic. Right ventricle normal size and systolic function. Left and right atrium are normal. Patent foramen ovale present. Valves are within normal limits except for mild mitral valve insufficiency and mild aortic valve insufficiency. Normal aortic root. 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 Coronado: Left ventricle normal size, no thrombus noted. Moderate segmental systolic dysfunction. It ejection fraction estimated 40%. Mid anterior akinesis, mid anteroseptal severely hypokinetic. Hammond is akinetic. Right ventricle normal size and systolic function. Left and right atrium are normal. Patent foramen ovale present. Valves are within normal limits except for mild mitral valve insufficiency and mild aortic valve insufficiency. Normal aortic root. assisted current use of anticoagulant 12/10/2016 03/30/2019 Colon cancer screening 03/15/201503/15 documented as of this encounter (statuses as of 12/17/2022) [facility] Myalgia Mylagia and myositis, unspecified [facility] Diagnosis Primary osteoarthritis of right knee- Primary Primary localized osteoarthrosis, lower leg [facility] Diagnosis Coronary artery disease involving beaver coronary artery of beaver heart without angina pectoris- Primary Mixed hyperlipidemia Nonischemic cardiomyopathy (HCC) Other primary cardiomyopathies Myalgia Mylagia and myositis, unspecified [facility]* Diagnosis Screening for prostate cancer- Primary Special screening for malignant neoplasm of prostate Chronic insomnia Insomnia, unspecified Anxiety with depression Coronary artery disease involving beaver coronary artery of beaver heart without angina pectoris Mixed hyperlipidemia Nonischemic cardiomyopathy (HCC) Other primary cardiomyopathies Lesion of buccal mucosa Other and unspecified diseases of the oral soft tissues documented [facility] this [facility] Diagnosis Myalgia Mylagia and myositis, unspecified [facility] Diagnosis Coronary artery disease involving beaver coronary artery of beaver heart without angina pectoris- Primary Nonischemic cardiomyopathy (HCC) Other primary cardiomyopathies Myocardial infarction, unspecified [place] type, unspecified artery (HCC) Mixed hyperlipidemia Anxiety with depression Lesion of buccal mucosa Other and unspecified diseases of the oral soft tissues BPH with obstruction/lower urinary tract symptoms Hypertrophy of prostate with urinary obstruction and other lower urinary tract symptoms (LUTS) Elevated PSA Elevated prostate specific antigen (PSA) Myalgia Mylagia and myositis, unspecified Weight loss Loss of weight [facility]* Diagnosis Myalgia Mylagia and myositis, unspecified documented in this encounter [facility] note* Diagnosis URI, acute- Primary Acute upper respiratory infections of unspecified site Acute otitis media, left Unspecified otitis media documented in this encounter [facility] Advance Directives No Advanced Directives Records FoundDocuments on File Type Date Recorded Patient Janitor Custodian Expl anation Advance Directive(s) 04/06/2019 9:38 AM Advance Directive(s) 09/28/2018 10:56 AM Advance Directive(s) 09/23/2018 12:47 PM Advance Directive(s) 09/02/2018 2:22 PM Advance Directive(s) 09/02/2018 3:51 PM Documents on File Type Date Recorded Patient Janitor Custodian Expl anation Advance Directive(s) 09/02/2018 3:51 PM Documents on File Type Date Recorded Patient Janitor Custodian Expl anation Advance Directive(s) 09/02/2018 3:51 PM Medications Administered Section Inactive Administered Medications - up to 3 most recent administrations Medication Order MAR Action Action Date Dose Rate Site betamethasone acetate-betamethasone sodium phosphate 6 mg injection (CELESTONE) 6 mg, OTHER, ONCE, 1 dose, On Fri08/17/21 at 1430, Intra-Articular Protect From Light. Given 08/17/2021 2:24 PM EDT 6 mg Health Concerns Infection Onset Date Last Indicated Resolved Time COVID-19 Rule-Out 03/07/2022 03/07/2022 03/08/2022 5:43 AM EST Reason for Referral Specialty Diagnoses / Procedures Referred By Dora t Referred To Contact Willow Voss PA-C [id number] [place] [address] Referral ID Status Reason Start Date Expiration Date V isits Requested Visits Authorized [id number] Pending Review 1 1 Summary Purpose Family History No Family History Records Found Additional Source Comments Source Comments (unrecognize d section and content) In the event this informatio n is protected by the Federal Confidentiality of Alcohol and Drug Abuse Patient Records regulations: The Federal rules restrict any use of the information to criminally investigate or prosecute any alcohol or drug abuse patient.[facility] the event this information is protected by the Federal Confidentiality of Alcohol and Drug Abuse Patient Records regulations: The Federal rules restrict any use of the information to criminally investigate or prosecute any alcohol or drug abuse patient.[facility] the event this information is protected by the Federal Confidentiality of Alcohol and Drug Abuse Patient Records regulations: The Federal rules restrict any use of the information to criminally investigate or prosecute any alcohol or drug abuse patient.[facility] the event this information is protected by the Federal Confidentiality of Alcohol and Drug Abuse Patient Records regulations: The Federal rules restrict any use of the information to criminally investigate or prosecute any alcohol or drug abuse patient.[facility] the event this information is protected by the Federal Confidentiality of Alcohol and Drug Abuse Patient Records regulations: The Federal rules restrict any use of the information to criminally investigate or prosecute any alcohol or drug abuse patient.[facility] the event this information is protected by the Federal Confidentiality of Alcohol and Drug Abuse Patient Records regulations: The Federal rules restrict any use of the information to criminally investigate or prosecute any alcohol or drug abuse patient.[facility] the event this information is protected by the Federal Confidentiality of Alcohol and Drug Abuse Patient Records regulations: The Federal rules restrict any use of the information to criminally investigate or prosecute any alcohol or drug abuse patient.[facility] the event this information is protected by the Federal Confidentiality of Alcohol and Drug Abuse Patient Records regulations: The Federal rules restrict any use of the information to criminally investigate or prosecute any alcohol or drug abuse patient.[facility] the event this information is protected by the Federal Confidentiality of Alcohol and Drug Abuse Patient Records regulations: The Federal rules restrict any use of the information to criminally investigate or prosecute any alcohol or drug abuse patient.[facility] the event this information is protected by the Federal Confidentiality of Alcohol and Drug Abuse Patient Records regulations: The Federal rules restrict any use of the information to criminally investigate or prosecute any alcohol or drug abuse patient.[facility] the event this information is protected by the Federal Confidentiality of Alcohol and Drug Abuse Patient Records regulations: The Federal rules restrict any use of the information to criminally investigate or prosecute any alcohol or drug abuse patient.[facility] the event this information is protected by the Federal Confidentiality of Alcohol and Drug Abuse Patient Records regulations: The Federal rules restrict any use of the information to criminally investigate or prosecute any alcohol or drug abuse patient.[facility] Reason for Visit (unrecogniz ed section and content) Reason Comments Established Patient ~ 9 month post visit OA right knee with injection given Reason Comments Results Reason Comments Sleep Problem Side effects with me dications Yearly Exam Reason Onset Date Comments Refill Request 07/30/2022 Reason Comments Follow Up Reason Onset Date Comments Refill Request 10/30/2022 Reason Comments Cough Cough and chest judit estion x 4 days Reason Comments Patient Request Care Teams (unrecognized sec tion and content) Non Destructive Tester Relationship Specialty Start Date End Date Willow Voss PA-C [address], [place] [id number] PCP - General Family Practice 02/21/16 Non Destructive Tester Relationship Specialty Start Date End Date Willow Voss PA-C [address], [place] [id number] PCP - General Family Medicine 02/21/16 Non Destructive Tester Relationship Specialty Start Date End Date Willow Voss PA-C [address] [place] [address] PCP - General Family [facility] 02/21/16 Non Destructive Tester Relationship Specialty Start Date End Date Willow Voss PA-C [address] [place] [address] PCP - General Family [facility] 02/21/16 Non Destructive Tester Relationship Specialty Start Date End Date Willow Voss PA-C [address] [place] [address] PCP - General Family [facility] 02/21/16 Non Destructive Tester Relationship Specialty Start Date End Date Willow Voss PA-C [address] [place] [address] PCP - General Family [facility] 02/21/16 Non Destructive Tester Relationship Specialty Start Date End Date Willow Voss PA-C [address] [place] [address] PCP - General Family Medicine 02/21/16 Non Destructive Tester Relationship Specialty Start Date End Date Willow Voss PA-C [address] [place] [address] PCP - General Family Medicine 02/21/16 Non Destructive Tester Relationship Specialty Start Date End Date Willow Voss PA-C [address] [place] [address] PCP - General Family Medicine 02/21/16 (unrecognized sect ion and content) No Status Records Found INFORMATION SOURCE (unrecogn ized section and content) FOR RECORDS PERTAINING TO PATIENTS WHO ARE OR HAVE BEEN ENROLLED IN A CHEMICAL DEPENDENCY/SUBSTANCEABUSE PROGRAM, SOME INFORMATION MAY BE OMITTED. This clinical summary was aggregated from multiple sources. Caution should be exercised in using it in the provision of clinical care. This summary normalizes information from multiple sources, and as a consequence, information in this document may materially change the coding, format and clinical context of patient data. In addition, data may be omitted in some cases. CLINICAL DECISIONS SHOULD BE BASED ON THE PRIMARY CLINICAL RECORDS. [facility] [employer] [facility]. provides no warranty or guarantee of the accuracy or completeness of information in this document.
[2023-04-09] MEDS: 0.9% Saline Lock 10 ML Syringe IV ×2 (22:26→22:28)
[2023-04-09] MEDS: TENECTEPLASE 2199.59999999999991 MG IV (22:27)
--- NOTE | 2023-04-09 22:33 | EX.ED.DYSGE1 ---
HPI History of Present Illness Chief Complaint: Stroke Alert Informant: family and EMS Narrative Narrative: Patient is a 67-year-old male with past medical history of coronary artery disease status post stent placement roughly 10 years ago with history of hypertension hyperlipidemia. Family states around 845/9 PM this evening they heard a thud and found the patient on the floor. They report that they noticed he was not moving his left side and slurring his speech and therefore had concern for stroke and called EMS. EMS states when they arrived they confirmed patient was awake breathing but not moving his left side and his blood sugar was normal. Secondary to this he was brought to the hospital for evaluation. Family reports patient is not on any type of anticoagulation [facility] Medical History Apical mural thrombus with acute PR Arthritis Atherosclerosis of coronary artery of [place] heart without angina pectoris Cardiology follow-up encounter Essential (primary) hypertension History of echocardiogram History of edema History of heart attack History of ST elevation myocardial infarction (STEMI) (12/11/11) History of stress test Hyperlipidemia Ischemic cardiomyopathy Non-smoker Old anterior wall myocardial infarction (12/2011) Wears glasses Home Medications amitriptyline 25 mg tablet 25 mg PO QHS 05/30/20 [History Last Taken 12/15/22] rosuvastatin 10 mg tablet 10 mg PO QHS 08/16/22 [History Last Taken 12/15/22] amitriptyline 50 mg tablet mg 04/09/23 [History Last Taken Unknown] hydrocodone 10 mg-acetaminophen 325 mg tablet tab 04/09/23 [History Last Taken Unknown] latanoprost 0.005 % eye drops drp 04/09/23 [History Last Taken Unknown] pantoprazole 40 mg tablet,delayed release mg PO 04/09/23 [History Last Taken Unknown] tamsulosin 0.4 mg capsule mg PO 04/09/23 [History Last Taken Unknown] Allergy/AdvReac Type Severity Reaction Status Date / Time aspirin Allergy Unknown Verified 04/09/23 22:26 naproxen AdvReac Unknown Verified 04/09/23 22:26 Surgical History History of coronary artery stent placement (12/11/11) History of herniorrhaphy Social History Smoking Status: Never smoker alcohol intake: never substance use type: does not use caffeine: Yes Type: tea Number of servings: 3 ROS ROS ED ROS Narrative Review of systems was obtained from family secondary to patient's acute medical condition Constitutional Constitutional ED: Denies fever(s) ENT ENT ED: Denies sore throat Cardiovascular Cardiovascular: Denies chest pain Respiratory/Chest Respiratory/Chest: Denies cough Gastrointestinal Gastrointestinal: Denies diarrhea or vomiting Musculoskeletal Musculoskeletal: Denies myalgias Integumentary Denies rash Neurologic Neurologic: Denies headache(s) Hematologic/Lymphatic Hematologic/Lymphatic: Denies easy bleeding or easy bruising EXAM Physical Exam Const Vital Signs: 04/09/23 21:56 04/09/23 22:15 04/09/23 22:22 Temperature 98.4 F 98.4 F Temperature Source Temporal Temporal Pulse Rate 91 83 79 Respiratory Rate 16 15 16 Blood Pressure 128/66 H 139/74 H 139/74 H Blood Pressure Mean 86 95 95 Blood Pressure Source Blood Pressure Position Blood Pressure Location Pulse Ox 95 99 99 Oxygen Delivery Method Room Air Room Air Room Air 04/09/23 22:28 04/09/23 21:59 04/09/23 22:27 Temperature 98.1 F Temperature Source Temporal Pulse Rate 76 Respiratory Rate 14 Blood Pressure 121/62 H 121/62 H Blood Pressure Mean 81 Blood Pressure Source Monitor Blood Pressure Position Blood Pressure Location Pulse Ox 98 Oxygen Delivery Method Room Air Room Air 04/09/23 22:32 04/09/23 22:47 04/09/23 22:55 Temperature 98.2 F Temperature Source Temporal Pulse Rate 77 76 78 Respiratory Rate 16 15 17 Blood Pressure 127/68 H 119/68 135/79 H Blood Pressure Mean 87 85 97 Blood Pressure Source Monitor Monitor Blood Pressure Position Semi-Fowlers Semi-Fowlers Blood Pressure Location Right Arm Right Arm Pulse Ox 99 98 98 Oxygen Delivery Method Room Air Room Air Room Air 04/09/23 23:00 04/09/23 23:02 04/09/23 23:21 Temperature 98.2 F Temperature Source Temporal Pulse Rate 80 81 83 Respiratory Rate 16 16 Blood Pressure 145/76 H 151/85 H Blood Pressure Mean 99 107 Blood Pressure Source Monitor Blood Pressure Position Semi-Fowlers Blood Pressure Location Right Arm Pulse Ox 98 97 Oxygen Delivery Method Room Air 02/07/24 23:17 Temperature Temperature Source Pulse Rate 85 Respiratory Rate 16 Blood Pressure 151/85 H Blood Pressure Mean 107 Blood Pressure Source Monitor Blood Pressure Position Semi-Fowlers Blood Pressure Location Right Arm Pulse Ox 98 Oxygen Delivery Method Room Air Positive well nourished and well developed General Appearance ED: well developed HEENT HEENT Narrative: Normocephalic atraumatic No tongue or lip swelling no oral lesions no airway edema or compromise Eyes PERRL Eyes Narrative: Gaze is deviated to the right extraocular muscles are altered consistent with his acute CVA Neck supple Neck Narrative: No obvious bony deformity or step-off of the cervical spine no midline pain on palpation Chest Wall palpation of chest normal Resp normal respiratory effort and clear to auscultation bilaterally Resp Narrative: No nasal flaring retractions tachypnea or accessory muscle use Cardio regular rate and regular rhythm Rate: other Other Details: Radial and carotid pulses are equal and symmetric GI normal to inspection, nondistended, normoactive bowel sounds, non-tender, non-distended and no masses GI Narrative: No voluntary guarding or rigidity or pulsatile mass Auscultation: normoactive bowel sounds Palpation: soft Extremity normal to inspection Extremity Narrative: Pelvis is stable there is no shortening or external rotation of either lower extremity No obvious bony deformity or joint effusion noted Neuro Neuro Narrative: Patient is awake and alert to person and place but disoriented to time. GCS of 14 Patient has a forced gaze to the right with loss of extraocular movement. He has left-sided neglect. There is a left-sided facial droop as well as left-sided paresthesias. There is mild aphasia noted and severe dysarthria. Despite his neglect if asked to lift his left arm and leg he can do so against gravity but this is much weaker than the right side which has strength plus 5 out of 5 to the arm and leg. Secondary to these findings listed above patient has been a stroke scale score of 12 Psych mental status grossly normal Skin no rashes or lesions noted and no wounds MDM MDM MDM Narrative Medical decision making narrative: Patient presented to the ER with findings consistent with an acute stroke. Stroke alert was activated prior to EMS arrival. He underwent a noncontrast CT and CTA of the head and neck as he is Van positive. CT revealed no acute bleed and as he has a last known well roughly 1 hour prior to arrival and a stroke scale score of 12 decision was made to give him TNK. The patient was also evaluated by the teleneurologist from [facility]. He agrees with TNK based on the high stroke scale score and negative head CT. On evaluation of the CTA there is a large vessel occlusion present. Therefore the patient would benefit from thrombectomy. This plan of care was discussed with the patient and family and they are agreeable to proceeding with it. Therefore patient will be transferred to [facility] for this procedure and he will go by [facility] secondary to his advanced stroke as he does have high risk for decompensation Of note by the time [facility] arrived to the ER the patient's stroke scale score have reduced to 0 secondary to the TNK and he remained hemodynamically stable. History & Record Review Discussion w/independent historian: EMS personnel and Family Lab Data Attestation: I reviewed the patient's lab results. Labs: Laboratory Results - last 24 hr 04/09/23 21:45 WBC 6.8 RBC 4.42 L Hgb 12.9 L Hct 38.0 L MCV 86.0 MCH 29.2 MCHC 33.9 RDW Std Deviation 40.0 RDW Coeff of Toshia 12.8 Plt Count 209 MPV 10.5 Immature Gran % (Auto) 0.000 Neut % (Auto) 43.6 L Lymph % (Auto) 41.0 Evangeline % (Auto) 10.4 H Eos % (Auto) 4.0 Baso % (Auto) 1.0 Absolute Neuts (auto) 3.0 Absolute Lymphs (auto) 2.79 Nucleated RBC % 0 PT 15.0 H INR 1.2 APTT 30.9 Sodium 138 Potassium 4.0 Chloride 106 Carbon Dioxide 28.0 Anion Gap 4 L BUN 19 H Creatinine 0.98 Estim Creat Clear Calc 63.21 Est GFR (MDRD) Af Amer 99 Est GFR (MDRD) Non-Af 82 BUN/Creatinine Ratio 19.5 Glucose 101 Calcium 9.5 Radiography Diagnostic Testing: Clinical Impression(s) from Imaging Studies Brain CT 04/09/23 21:57 IMPRESSION: No CT evidence of acute intracranial hemorrhage or injury. Mild senescent changes compatible with age. Mild scattered sinus disease. Electronically Signed: Justen Soto MD at 22:15 EST Reading Location ID and State: [facility] / [place] Tel , Service support , ADDENDUM: 04/09/23 2222 IMPRESSION: No CT evidence of acute intracranial hemorrhage or injury. Mild senescent changes compatible with age. Mild scattered sinus disease. N.B. : The above Results were Read Back by Justen Soto MD to Ayan Weinstein DO, and understanding confirmed on 04/09/2023 22:15:58 (ET). Electronically Signed: Justen Soto MD at 22:15 EST , Head/Neck CTA 04/09/23 21:59 IMPRESSION: Findings concerning for focal short segment high-grade stenosis of the distal right M1 segment just prior to bifurcation at the sylvian fissure with reconstitution and distal vascular flow. No evidence of flow-limiting stenosis within the neck. Sinus disease N.B. : The above Results were Read Back by Justen Soto MD to Ayan Weinstein DO, and understanding confirmed on 04/09/2023 22:48:28 (ET). Electronically Signed: Justen Soto MD at 22:50 EST , ADDENDUM: 04/09/23 2257 IMPRESSION: Findings concerning for focal short segment high-grade stenosis of the distal right M1 segment just prior to bifurcation at the sylvian fissure with reconstitution and distal vascular flow. No evidence of flow-limiting stenosis within the neck. Sinus disease N.B. : The above Results were Read Back by Justen Soot MD to Ayan Weinstein DO, and understanding confirmed on 04/09/2023 22:48:28 (ET). Electronically Signed: Justen Soto MD at 22:50 EST , Chest X-Ray 04/09/23 22:37 IMPRESSION: No radiographic evidence of acute cardiopulmonary disease. Electronically Signed: Justen Soto MD at 23:38 EST , 1 view chest x-ray as interpreted by the emergency medicine physician reveals no acute infiltrate or pneumothorax or pleural effusion Management Discussion w/another healthcare provider: Physician Relations Representative and Radiologist Critical Care Time Critical Care Time: Yes Critical care time (excluding procedures): Discussing w/Patient &/or Family/Concrete Buildings Assembler, Discussing w/Consultants, Arranging Admission or Transfer and - (Critical care time 33 minutes) Discharge Plan Triage Chief Complaint: Stroke Alert ED Provider: Ayan Weinstein Dx/Rx/DC Orders Clinical Impression: Acute cerebrovascular accident (CVA), Hyperlipidemia, Hypertension, History of CAD (coronary artery disease) Prescriptions: No Action amitriptyline 25 mg tablet 25 mg PO QHS rosuvastatin 10 mg tablet 10 mg PO QHS latanoprost 0.005 % drops hydrocodone-acetaminophen 10-325 mg tablet Patient Comments: take 1 tablet by mouth every 4 hours NEEDED FOR PAIN *DO NOT EXCEED 5 TABLETS PER DAY* amitriptyline 50 mg tablet tamsulosin 0.4 mg capsule PO pantoprazole 40 mg tablet,delayed release (DR/EC) PO Primary Care Provider: Willow Voss Referrals: Willow Voss PA [Primary Care Provider] - Disposition Disposition: Acute Care Hospital Discharge Location: [facility] Discharge Date/Time: 04/09/23 23:27
--- NOTE | 2023-04-09 22:37 | RAD_ITS ---
INDICATION: Neuro deficit, acute, stroke suspected EXAMINATION/TECHNIQUE: X-RAY - XR Chest 1 View COMPARISON: None. FINDINGS: LINES/DEVICES: None. LUNGS: No consolidation, edema or effusion. No pneumothorax. MEDIASTINUM AND CARDIOVASCULAR STRUCTURES: Cardiac silhouette not enlarged. BONES AND SOFT TISSUES: Unremarkable. RAD/Chest 1 View IMPRESSION: No radiographic evidence of acute cardiopulmonary disease. Electronically Signed: Justen Soto MD at 23:38 EST ,
[2023-04-09] MEDS: 0.9% Normal Saline (1000mL) 1,000 ML 100 ML IV (22:40)
== END 2023-04-09 23:27 | disposition short-term general hospital (02) ==
PROVIDERS: Emergency Provider Emergency Medicine; PCP Physician Assistant; Visit Provider Emergency Medicine
DX: I63.9 Cerebral infarction, unspecified (principal); E78.5 Hyperlipidemia, unspecified; I10 Essential (primary) hypertension; I25.10 Atherosclerotic heart disease of native coronary artery without angina pectoris; I25.2 Old myocardial infarction; Z95.5 Presence of coronary angioplasty implant and graft
CPT/HCPCS: 51702; 70450; 70496; 70498; 71045; 80048; 85025; 85610; 85730; 93005; 99285; J3101; J7030; Q9967; A4216

== ENCOUNTER 2023-06-20 13:50 | Outpatient (RCR) | payer MEDICARE, SELFPAY ==
[2023-06-05 11:55] LABS: INR Fingerstick 2.1; Prothrombin Time Fingerstick 22.4 SEC (11.7-14.9)
[2023-06-13 16:35] LABS: Prothrombin Time Fingerstick 29.7 SEC (11.7-14.9)
[2023-06-20 15:04] LABS: Prothrombin Time (Protime)PT. 22.7 SECONDS (11.7-14.9)
== END 2023-07-01 23:05 | disposition home or self-care (01) ==
LOC: LAB 13:50
PROVIDERS: PCP Physician Assistant; Referring Provider Internal Medicine Cardiovascular Disease; Visit Provider Internal Medicine Cardiovascular Disease
DX: Z79.01 Long term (current) use of anticoagulants (principal); I63.9 Cerebral infarction, unspecified; I51.3 Intracardiac thrombosis, not elsewhere classified; I25.5 Ischemic cardiomyopathy
CPT/HCPCS: 36415; 36416; 85610

== ENCOUNTER 2023-07-24 10:54 | Outpatient (RCR) | payer MEDICARE, SELFPAY ==
[2023-07-02 16:20] LABS: INR Fingerstick 1.9; Prothrombin Time Fingerstick 20.5 SEC (11.7-14.9)
[2023-07-18 13:03] LABS: INR Fingerstick 1.8; Prothrombin Time Fingerstick 18.8 SEC (11.7-14.9)
[2023-07-24 11:04] LABS: Prothrombin Time Fingerstick 20.6 SEC (11.7-14.9)
== END 2023-07-24 18:00 | disposition home or self-care (01) ==
LOC: LAB 10:54
PROVIDERS: PCP Physician Assistant; Referring Provider Internal Medicine Cardiovascular Disease; Visit Provider Internal Medicine Cardiovascular Disease
DX: Z79.01 Long term (current) use of anticoagulants (principal); I63.9 Cerebral infarction, unspecified; I51.3 Intracardiac thrombosis, not elsewhere classified; I25.5 Ischemic cardiomyopathy
CPT/HCPCS: 36416; 85610

== ENCOUNTER 2023-08-29 16:03 | Outpatient (RCR) | payer MEDICARE, SELFPAY ==
[2023-08-08 16:58] LABS: International Normalized Ratio 2.2; Prothrombin Time (Protime)PT. 24.2 SECONDS (11.7-14.9)
[2023-08-11 14:06] LABS: INR Fingerstick 1.7; Prothrombin Time Fingerstick 18.6 SEC (11.7-14.9)
[2023-08-29 16:16] LABS: INR Fingerstick 1.7; Prothrombin Time Fingerstick 18.6 SEC (11.7-14.9)
[2023-08-29 16:57] LABS: International Normalized Ratio 1.9; Prothrombin Time (Protime)PT. 21.8 SECONDS (11.7-14.9)
== END 2023-08-29 18:00 | disposition home or self-care (01) ==
LOC: LAB 16:03
PROVIDERS: PCP Physician Assistant; Referring Provider Internal Medicine Cardiovascular Disease; Visit Provider Internal Medicine Cardiovascular Disease
DX: Z79.01 Long term (current) use of anticoagulants (principal); I63.9 Cerebral infarction, unspecified; I51.3 Intracardiac thrombosis, not elsewhere classified; I25.5 Ischemic cardiomyopathy
CPT/HCPCS: 36415; 36416; 85610

== ENCOUNTER 2023-09-26 16:25 | Outpatient (RCR) | payer MEDICARE, SELFPAY ==
[2023-09-12 16:58] LABS: Prothrombin Time Fingerstick 30.4 SEC (11.7-14.9)
[2023-09-26 16:44] LABS: INR Fingerstick 2.3; Prothrombin Time Fingerstick 23.6 SEC (11.7-14.9)
== END 2023-10-01 18:00 | disposition home or self-care (01) ==
LOC: LAB 16:25
PROVIDERS: PCP Physician Assistant; Referring Provider Internal Medicine Cardiovascular Disease; Visit Provider Internal Medicine Cardiovascular Disease
DX: Z79.01 Long term (current) use of anticoagulants (principal); I63.9 Cerebral infarction, unspecified; I25.5 Ischemic cardiomyopathy; I51.3 Intracardiac thrombosis, not elsewhere classified
CPT/HCPCS: 36416; 85610

== ENCOUNTER 2023-10-24 16:30 | Outpatient (RCR) | payer MEDICARE, SELFPAY ==
[2023-10-11 07:41] LABS: INR Fingerstick 1.9; Prothrombin Time Fingerstick 20.5 SEC (11.7-14.9)
[2023-10-24 16:40] LABS: INR Fingerstick 2.4; Prothrombin Time Fingerstick 24.9 SEC (11.7-14.9)
== END 2023-10-24 18:00 | disposition home or self-care (01) ==
LOC: LAB 16:30
PROVIDERS: PCP Physician Assistant; Referring Provider Internal Medicine Cardiovascular Disease; Visit Provider Internal Medicine Cardiovascular Disease
DX: Z79.01 Long term (current) use of anticoagulants (principal); I63.9 Cerebral infarction, unspecified; I51.3 Intracardiac thrombosis, not elsewhere classified; I25.5 Ischemic cardiomyopathy
CPT/HCPCS: 36416; 85610

== ENCOUNTER 2023-11-14 16:20 | Outpatient (RCR) | payer MEDICARE, SELFPAY ==
[2023-11-14 16:28] LABS: INR Fingerstick 2.7; Prothrombin Time Fingerstick 27.7 SEC (11.7-14.9)
== END 2023-11-14 18:00 | disposition home or self-care (01) ==
LOC: LAB 16:20
PROVIDERS: PCP Physician Assistant; Referring Provider Internal Medicine Cardiovascular Disease; Visit Provider Internal Medicine Cardiovascular Disease
DX: I51.3 Intracardiac thrombosis, not elsewhere classified (principal); I63.9 Cerebral infarction, unspecified; Z79.01 Long term (current) use of anticoagulants; I25.5 Ischemic cardiomyopathy
CPT/HCPCS: 36416; 85610

== ENCOUNTER 2024-01-01 11:58 | Outpatient (RCR) | payer MEDICARE, SELFPAY ==
[2023-12-05 11:00] LABS: INR Fingerstick 2.6; Prothrombin Time Fingerstick 26.2 SEC (11.7-14.9)
[2024-01-01 12:07] LABS: INR Fingerstick 2.5; Prothrombin Time Fingerstick 26.3 SEC (11.7-14.9)
== END 2024-01-01 18:00 | disposition home or self-care (01) ==
LOC: LAB 11:58
PROVIDERS: PCP Physician Assistant; Referring Provider Internal Medicine Cardiovascular Disease; Visit Provider Internal Medicine Cardiovascular Disease
DX: I51.3 Intracardiac thrombosis, not elsewhere classified (principal); Z79.01 Long term (current) use of anticoagulants; I25.5 Ischemic cardiomyopathy; I63.9 Cerebral infarction, unspecified
CPT/HCPCS: 36416; 85610

== ENCOUNTER 2024-01-23 16:17 | Outpatient (RCR) | payer MEDICARE, SELFPAY ==
[2024-01-23 16:44] LABS: INR Fingerstick 2.7; Prothrombin Time Fingerstick 28.2 SEC (11.7-14.9)
== END 2024-01-31 18:00 | disposition home or self-care (01) ==
LOC: LAB 16:17
PROVIDERS: PCP Physician Assistant; Referring Provider Internal Medicine Cardiovascular Disease; Visit Provider Internal Medicine Cardiovascular Disease
DX: I51.3 Intracardiac thrombosis, not elsewhere classified (principal); I63.9 Cerebral infarction, unspecified; Z79.01 Long term (current) use of anticoagulants; I25.5 Ischemic cardiomyopathy
CPT/HCPCS: 36416; 85610

== ENCOUNTER 2024-02-23 16:27 | Outpatient (RCR) | payer MEDICARE, SELFPAY ==
[2024-02-23 17:19] LABS: International Normalized Ratio 3.6; Prothrombin Time (Protime)PT. 35.9 SECONDS (11.7-14.9)
== END 2024-02-23 18:00 | disposition home or self-care (01) ==
LOC: LAB 16:27
PROVIDERS: PCP Physician Assistant; Referring Provider Internal Medicine Cardiovascular Disease; Visit Provider Internal Medicine Cardiovascular Disease
DX: Z79.01 Long term (current) use of anticoagulants (principal); I63.9 Cerebral infarction, unspecified; I51.3 Intracardiac thrombosis, not elsewhere classified; I25.5 Ischemic cardiomyopathy
CPT/HCPCS: 36415; 85610

== ENCOUNTER 2024-03-24 16:31 | Outpatient (RCR) | payer MEDICARE, SELFPAY ==
[2024-03-08 16:31] LABS: INR Fingerstick 3.2; Prothrombin Time Fingerstick 31.8 SEC (11.7-14.9)
[2024-03-24 17:14] LABS: International Normalized Ratio 2.9; Prothrombin Time (Protime)PT. 31.2 SECONDS (11.7-14.9)
== END 2024-03-24 18:00 | disposition home or self-care (01) ==
LOC: LAB 16:31
PROVIDERS: PCP Physician Assistant; Referring Provider Internal Medicine Cardiovascular Disease; Visit Provider Internal Medicine Cardiovascular Disease
DX: I25.5 Ischemic cardiomyopathy (principal); Z79.01 Long term (current) use of anticoagulants; I63.9 Cerebral infarction, unspecified; I51.3 Intracardiac thrombosis, not elsewhere classified
CPT/HCPCS: 36415; 36416; 85610

== ENCOUNTER 2024-04-14 11:58 | Outpatient (RCR) | payer MEDICARE, SELFPAY ==
[2024-04-14 12:11] LABS: INR Fingerstick 2.3; Prothrombin Time Fingerstick 23.5 SEC (11.7-14.9)
== END 2024-04-30 18:00 | disposition home or self-care (01) ==
LOC: LAB 11:58
PROVIDERS: PCP Physician Assistant; Referring Provider Internal Medicine Cardiovascular Disease; Visit Provider Internal Medicine Cardiovascular Disease
DX: Z79.01 Long term (current) use of anticoagulants (principal); I63.9 Cerebral infarction, unspecified; I51.3 Intracardiac thrombosis, not elsewhere classified; I25.5 Ischemic cardiomyopathy
CPT/HCPCS: 36416; 85610

== ENCOUNTER 2024-05-26 16:27 | Outpatient (RCR) | payer MEDICARE, SELFPAY ==
[2024-05-06 10:11] LABS: INR Fingerstick 2.3; Prothrombin Time Fingerstick 24.6 SEC (11.7-14.9)
[2024-05-26 16:37] LABS: INR Fingerstick 2.6; Prothrombin Time Fingerstick 27.4 SEC (11.7-14.9)
== END 2024-05-26 18:00 | disposition home or self-care (01) ==
LOC: LAB 16:27
PROVIDERS: PCP Physician Assistant; Referring Provider Internal Medicine Cardiovascular Disease; Visit Provider Internal Medicine Cardiovascular Disease
DX: Z79.01 Long term (current) use of anticoagulants (principal); I63.9 Cerebral infarction, unspecified; I51.3 Intracardiac thrombosis, not elsewhere classified; I25.5 Ischemic cardiomyopathy
CPT/HCPCS: 36416; 85610

== ENCOUNTER 2024-06-16 16:18 | Outpatient (RCR) | payer MEDICARE, SELFPAY ==
[2024-06-16 16:30] LABS: INR Fingerstick 2.7; Prothrombin Time Fingerstick 28.3 SEC (11.7-14.9)
== END 2024-06-30 18:00 | disposition home or self-care (01) ==
LOC: LAB 16:18
PROVIDERS: PCP Physician Assistant; Referring Provider Internal Medicine Cardiovascular Disease; Visit Provider Internal Medicine Cardiovascular Disease
DX: I51.3 Intracardiac thrombosis, not elsewhere classified (principal); I25.5 Ischemic cardiomyopathy; Z86.73 Personal history of transient ischemic attack (TIA), and cerebral infarction without residual deficits; Z79.01 Long term (current) use of anticoagulants
CPT/HCPCS: 36416; 85610

== ENCOUNTER 2024-07-14 16:25 | Outpatient (RCR) | payer MEDICARE, SELFPAY ==
[2024-07-07 16:43] LABS: INR Fingerstick 3.7; Prothrombin Time Fingerstick 37.5 SEC (11.7-14.9)
[2024-07-14 16:43] LABS: INR Fingerstick 3.1; Prothrombin Time Fingerstick 31.8 SEC (11.7-14.9)
== END 2024-07-14 18:00 | disposition home or self-care (01) ==
LOC: LAB 16:25
PROVIDERS: PCP Physician Assistant; Referring Provider Internal Medicine Cardiovascular Disease; Visit Provider Internal Medicine Cardiovascular Disease
DX: Z79.01 Long term (current) use of anticoagulants (principal); I51.3 Intracardiac thrombosis, not elsewhere classified; I63.9 Cerebral infarction, unspecified; I25.5 Ischemic cardiomyopathy
CPT/HCPCS: 36416; 85610

== ENCOUNTER 2024-08-25 16:28 | Outpatient (RCR) | payer MEDICARE, SELFPAY ==
[2024-08-05 17:28] LABS: International Normalized Ratio 2.8; Prothrombin Time (Protime)PT. 30.2 SECONDS (11.7-14.9)
[2024-08-25 16:37] LABS: INR Fingerstick 2.4; Prothrombin Time Fingerstick 25.4 SEC (11.7-14.9)
== END 2024-08-25 18:00 | disposition home or self-care (01) ==
LOC: LAB 16:28
PROVIDERS: PCP Physician Assistant; Referring Provider Internal Medicine Cardiovascular Disease; Visit Provider Internal Medicine Cardiovascular Disease
DX: Z79.01 Long term (current) use of anticoagulants (principal); I51.3 Intracardiac thrombosis, not elsewhere classified; I63.9 Cerebral infarction, unspecified; I25.5 Ischemic cardiomyopathy
CPT/HCPCS: 36415; 36416; 85610

== ENCOUNTER 2024-09-22 16:29 | Outpatient (RCR) | payer MEDICARE, SELFPAY ==
[2024-09-22 16:36] LABS: INR Fingerstick 3.1
== END 2024-09-30 21:07 | disposition home or self-care (01) ==
LOC: LAB 16:29
PROVIDERS: PCP Physician Assistant; Referring Provider Internal Medicine Cardiovascular Disease; Visit Provider Internal Medicine Cardiovascular Disease
DX: Z79.01 Long term (current) use of anticoagulants (principal); I51.3 Intracardiac thrombosis, not elsewhere classified; I63.9 Cerebral infarction, unspecified; I25.5 Ischemic cardiomyopathy
CPT/HCPCS: 36416; 85610

== ENCOUNTER 2024-10-22 15:50 | Outpatient (RCR) | payer MEDICARE, SELFPAY ==
[2024-10-22 16:01] LABS: INR Fingerstick 2.3
== END 2024-10-22 18:00 | disposition home or self-care (01) ==
LOC: LAB 15:50
PROVIDERS: PCP Physician Assistant; Referring Provider Internal Medicine Cardiovascular Disease; Visit Provider Internal Medicine Cardiovascular Disease
DX: Z79.01 Long term (current) use of anticoagulants (principal); I51.3 Intracardiac thrombosis, not elsewhere classified; I63.9 Cerebral infarction, unspecified; I25.5 Ischemic cardiomyopathy
CPT/HCPCS: 36416; 85610

== ENCOUNTER 2024-11-18 14:05 | Outpatient (RCR) | payer MEDICARE, SELFPAY ==
[2024-11-18 14:44] LABS: Prothrombin Time (Protime)PT. 24.2 SECONDS (11.7-14.9)
== END 2024-11-30 18:00 | disposition home or self-care (01) ==
LOC: LAB 14:05
PROVIDERS: PCP Clinical Nurse Specialist Adult Health; Referring Provider Internal Medicine Cardiovascular Disease; Visit Provider Internal Medicine Cardiovascular Disease
DX: Z79.01 Long term (current) use of anticoagulants (principal); I51.3 Intracardiac thrombosis, not elsewhere classified; I63.9 Cerebral infarction, unspecified; I25.5 Ischemic cardiomyopathy
CPT/HCPCS: 36415; 85610

== ENCOUNTER 2024-12-30 14:42 | Outpatient (RCR) | payer MEDICARE, SELFPAY ==
[2024-12-04 11:10] LABS: INR Fingerstick 2.5
[2024-12-30 15:09] LABS: INR Fingerstick 1.9
[2024-12-30 16:19] LABS: CRP < 3.00 mg/L (0.0-3.0)
[2025-01-03 09:08] LABS: ANTINUCLEAR ANTIBODIES DIRECT Negative (Negative)
== END 2024-12-30 18:00 | disposition home or self-care (01) ==
LOC: LAB 14:42
PROVIDERS: Podiatrist Foot & Ankle Surgery; PCP Clinical Nurse Specialist Adult Health; Referring Provider Internal Medicine Cardiovascular Disease; Visit Provider Clinical Nurse Specialist Adult Health
DX: Z79.01 Long term (current) use of anticoagulants (principal); I51.3 Intracardiac thrombosis, not elsewhere classified; I63.9 Cerebral infarction, unspecified; I25.5 Ischemic cardiomyopathy; M79.10 Myalgia, unspecified site
CPT/HCPCS: 36415; 36416; 85610; 85652; 86038; 86140; 86431

== ENCOUNTER → 2025-01-20 | Outpatient (CLI) | payer MEDICARE, SELFPAY ==
--- NOTE | 2025-01-20 15:10 | ST.MBS ---
Modified Barium Swallow Patient Information Study Date: 01/20/25 Study Time: 13:00 Direct Billable Minutes: 81 Total Minutes procedure & reportin Diagnosis: I63.9; R13.10 Referring Physician: Esperanza Avelar Reason for Referral: Assess swallow function, assess risk for aspiration, and determine recommendations for least restrictive diet textures and compensatory strategies to improve swallowing safety. Medical History: The patient presented for MBSS, referred by PCP SCIENCE INTERPRETER, Esperanza Avelar, due to pt reports of sensation of food caught in his throat (spicy foods) ~1X/week. Pt denies hx of PNA, hx of injury to head or neck. Pt reports his swallowing difficulty began ~1 year ago. Of note, pt had a CVA in 2023. PMH: NSTEMI (2011), CVA (2023), HLD, Non-smoker, Arthritis, Atherosclerosis of coronary artery of [place] heart without angina pectoris, GERD (managed by medication per pt), See EMR for full PMH. Current Diet Ordered: Regular textures / Thin liquids Dentition: Upper Dentures and Lower Dentures Mental Status: WNL Respiratory Status: Oxygenating on Room Air Penetration-Aspiration Scale Penetration-Aspiration Scale: OBJECTIVE ASSESSMENT OF SWALLOW FUNCTION (QUANTITATIVE ? PER TRIAL): PENETRATION / ASPIRATION SCALE (BADILLO): 1 = does not enter airway 2 = enters airway/above vocal folds/ejected 3 = enters airway/above vocal folds/not ejected 4 = enters airway/contacts vocal folds/ejected 5 = enters airway/contacts vocal folds/not ejected 6 = enters airway/below vocal folds/ejected 7 = enters airway/below vocal folds/not ejected despite effort 8 = enters airway/below vocal folds/no effort VIDEOFLOROSCOPIC SCALE SCORE (BADILLO): Grade I = aspiration of material that has penetrated into the laryngeal vestibule, intact cough reflex Grade II = aspiration < 10 % of the bolus, intact cough reflex Grade III = aspiration of < 10 % of the bolus, reduced cough reflex or aspiration of > 10 % of the bolus, intact cough reflex Grade IV = aspiration of > 10 % of the bolus, reduced cough reflex Penetration-Aspiration Scale Score Thin Liquid via teaspoon: Result: 1= does not enter airway Thin Liquid via teaspoon Trial 2: Result: 1= does not enter airway Thin Liquid via sequential sips: cup: Result: 2= enter airway/above vocal folds/ejected Comment: Esophageal screen - Complete clearance. Pudding via teaspoon: Result: 1= does not enter airway Comment: Esophageal screen - Complete clearance. Thin Liquid via single sip: straw: Result: 1= does not enter airway Thin Liquid via sequential sips:straw: Result: 2= enter airway/above vocal folds/ejected Thin Liquid via single sip: straw Trial 2: Result: 1= does not enter airway Oral Phase Labial Seal: No Labial Escape Tongue Control During Bolus Hold: Posterior escape of less than half of bolus Bolus Preparation/Mastication: Slow prolonged chewing/mashing with complete recollection (small pieces of cookie appearing somewhat un-chewed) Bolus Transport/Lingual Motion: Delayed initiation of tongue motion Oral Residue: Majority of bolus remaining (piecemeal deglutition) Pharyngeal Phase Initiation of Pharyngeal Swallow: Bolus head at posterior laryngeal surgace of epiglottis Soft Palate Elevation: Trace column of contrast/air between soft palate and pharyngeal wall Laryngeal Elevation: Comp. Superior move thyroid cart w/comp. apprx arytenoid cart-epig pet Anterior Hyoid Excursion: Partial anterior movement Epiglottic Movement: Complete inversion Laryngeal Vestibule Closure at Height of Swallow: Incomplete; narrow column of air/contrast in laryngeal vestibule Pharyngeal Stripping Wave: Present - diminished Pharyngoesophageal Segment Opening: Parital distension and partial duration; parital obstruction of flow Tongue Base Retraction: Wide column of contrast between tongue base & post. pharyngeal wall Pharyngeal Residue: Collection of residue within or on pharyngeal structures Diagnosis/Impression Diagnosis: Mild oropharyngeal dypshagia R13.12 MBS Impressions: Small C-P bar at the level of C4, which did not appear to impede bolus clearance through the UES. The oral phase is primarily marked by... -Mildly decreased bolus control w/ premature posterior loss of <1/2 of sequential thin liquid boluses to the posterior surface of the epiglottis prior to swallow onset. -Piecemeal deglutition. -Mildly decreased mastication of cookie w/ small pieces appearing somewhat un-chewed. The pharyngeal phase is primarily marked by... -Decreased pharyngeal motility due to decreased TB retraction and pharyngeal stripping wave w/ mild-moderate pharyngeal residues, which mostly cleared w/ use of multiple swallows as needed. -Decreased anterior hyoid excursion; however, only trace laryngeal penetration of liquids during the swallow 2X w/ complete ejection due to good laryngeal elevation. No aspiration observed. Recommendations Diet: Regular Textures and Thin Liquids Compensatory Strategies: Small Bites, Small Sips, Slow Rate, Multiple Swallows, Alternate bites/solids and sips/liquids, Sitting upright and Remain sitting upright for 30 minutes after PO intake Recommend Repeat Modified Barium Swallow: No Need for Skilled Speech Therapy Services: Yes Comment: -Train the patient in use of strategies to decrease risk for aspiration. -Train the patient in oropharyngeal exercise program to improve bolus control and pharyngeal motility (lingual resistance, Farida, effortful). Education Completed: 1. Described result of evaluation., 2. Pt understands evaluation & agrees with goals and treatment plan. and 7. Pt requires further education on strategies & risks. Status Active ST Patient: Active Contact Information [facility] Speech Therapy:: Dede Head M.A. [facility] [employer] MANAGER Speech-Language Pathologist [facility] [address] [place] [address] [phone]
== END | disposition home or self-care (01) ==
LOC: RAD 13:11
PROVIDERS: PCP Clinical Nurse Specialist Adult Health; Referring Provider Clinical Nurse Specialist Adult Health; Visit Provider Clinical Nurse Specialist Adult Health
DX: R13.10 Dysphagia, unspecified (principal); Z86.73 Personal history of transient ischemic attack (TIA), and cerebral infarction without residual deficits
CPT/HCPCS: 74230; 92611

== ENCOUNTER 2025-01-21 11:52 | Outpatient (RCR) | payer MEDICARE, SELFPAY ==
[2025-01-18 07:49] LABS: INR Fingerstick 3.9
[2025-01-21 12:10] LABS: INR Fingerstick 2.0
== END 2025-01-29 18:00 | disposition home or self-care (01) ==
LOC: LAB 11:52
PROVIDERS: PCP Clinical Nurse Specialist Adult Health; Referring Provider Internal Medicine Cardiovascular Disease; Visit Provider Clinical Nurse Specialist Adult Health
DX: Z79.01 Long term (current) use of anticoagulants (principal); I51.3 Intracardiac thrombosis, not elsewhere classified; I63.9 Cerebral infarction, unspecified; I25.5 Ischemic cardiomyopathy
CPT/HCPCS: 36416; 85610

== ENCOUNTER 2025-02-25 14:01 | Outpatient (RCR) | payer MEDICARE, SELFPAY ==
[2025-02-11 12:51] LABS: INR Fingerstick 3.9
[2025-02-18 15:10] LABS: INR Fingerstick 3.4
[2025-02-25 14:08] LABS: INR Fingerstick 3.0
== END 2025-02-25 18:00 | disposition home or self-care (01) ==
LOC: LAB 14:01
PROVIDERS: PCP Clinical Nurse Specialist Adult Health; Referring Provider Internal Medicine Cardiovascular Disease; Visit Provider Clinical Nurse Specialist Adult Health
DX: Z79.01 Long term (current) use of anticoagulants (principal); I51.3 Intracardiac thrombosis, not elsewhere classified; I63.9 Cerebral infarction, unspecified; I25.5 Ischemic cardiomyopathy
CPT/HCPCS: 36416; 85610